=== PATIENT | male | born 1995 | race Two or more races ===

== ENCOUNTER 2018-10-28 04:15 | Emergency (ER) | payer OTHER ==
[~2018-10-28] VITALS: Ht 177.8 cm; Wt 78.5 kg
[2018-10-28 04:20] VITALS: Ht 177.8 cm; Wt 78.5 kg
[2018-10-28 05:15] VITALS: BP 128/71
== END 2018-10-28 05:27 | disposition home or self-care (01) ==
LOC: ED 04:15
DX: S93.401A Sprain of unspecified ligament of right ankle, initial encounter (principal); Z90.89 Acquired absence of other organs; X50.1XXA Overexertion from prolonged static or awkward postures, initial encounter; Y93.89 Activity, other specified; Y92.89 Other specified places as the place of occurrence of the external cause; Y99.8 Other external cause status

== ENCOUNTER 2019-08-19 13:07 | Emergency (ER) | payer OTHER, SELFPAY ==
[~2019-08-19] VITALS: Ht 177.8 cm; Wt 77.1 kg
[2019-08-19 13:25] VITALS: Ht 177.8 cm; Wt 77.1 kg
[2019-08-19 15:26] VITALS: BP 131/77
== END 2019-08-19 15:26 | disposition home or self-care (01) ==
LOC: ED 13:07
DX: B34.9 Viral infection, unspecified (principal); Z90.89 Acquired absence of other organs
CPT/HCPCS: 87804